=== PATIENT | male | born 2000 | race Caucasian/White ===

== ENCOUNTER 2021-09-25 07:18 | Emergency (ER) | payer OTHER, SELFPAY ==
[2021-09-25 08:09] VITALS: BP 125/75; PULSE 58; RESP 18; TEMP 36.6; O2SAT 98; BMI 22.8
--- NOTE | 2021-09-25 09:59 | ED_ITS ---
HPI - Eye Problem General Chief complaint: Eye Problems Stated complaint: L eye inj Time Seen by Provider: 09/25/21 09:19 Source: patient Mode of arrival: ambulatory History of Present Illness HPI Narrative: 21-year-old male with no significant past medical history presenting to the ED complaining left eye erythema and irritation s/p being hit in the face with dodge ball yesterday. Reports initially after injury had brief loss of vision which came back and is at baseline now. Denies wearing glasses or contacts. Reports mild blurry vision at present/dry eye. Denies drainage from eye, vision loss at present, fever, nausea/vomiting MD chief complaint: eye pain and eye redness Onset (ago): day(s) Onset description: sudden Location: left eye Eye Symptoms: redness, pain and blurry vision Related Data Previous Rx's Medication Instructions Recorded polymyxin B sulfate 10,000 1 drp ophthalmic (eye) Q3H 7 days 09/25/21 unit-trimethoprim 1 mg/mL eye #10 mL drops (Polytrim) Allergies Allergy/AdvReac Type Severity Reaction Status Date / Time No Known Allergies Allergy Verified 09/25/21 08:09 Review of Systems Review of Systems: Constitutional:No Fever, No Chills, No Night Sweats, No Fatigue, No Malaise ENT/Mouth: No Ear Pain, No Nasal Congestion, No Sinus Pain, No Hoarseness, No sore throat, No Rhinorrhea, No Swallowing Difficulty Eyes: + Eye Pain, No Swelling, + Redness, No Foreign Body, No Discharge, + Vision Changes (improved) Cardiovascular: No Chest Pain, No SOB, No Palpitations Respiratory: No Cough, No Sputum, No Dyspnea Gastrointestinal: No Nausea, No Vomiting, No Diarrhea, No Abdominal pain Genitourinary: No Hematuria, No Urinary Incontinence/retention Musculoskeletal: No joint pain, No Myalgias Skin: No Skin Lesions, No rash Neuro: No Weakness, No Numbness, No Paresthesias, No Loss of Consciousness, No Dizziness, No Headache Yes all other systems are reviewed and are negative [facility] Past Medical History Attestation statement: The following information was validated with the patient. Social History Social History Advance Directives: No Advance Directives Information Provided: No Physical Exam Vital Signs: Vital Signs: Last Vital Signs Temp 98 F 09/25/21 08:09 Pulse 58 09/25/21 08:09 Resp 18 09/25/21 08:09 BP 125/75 09/25/21 08:09 Pulse Ox 98 09/25/21 08:09 O2 Del Method 09/25/21 08:09 BMI result Body Mass Index 22.8 Const: General: cooperative, healthy appearing and no acute distress Orientation/consciousness: patient oriented x3 Limitations: no limitations HEENT: Head: Yes normal to inspection and Yes atraumatic Ears: hearing grossly normal bilaterally General nose exam: Normal external nose present Face and sinus: Yes normal facial exam Eyes: Other: No appreciable orbital step-off. EOMs intact without entrapment. General: appearance normal, both eyes and all related structures Eyelids: Yes eyelids normal Conjunctivae: conjunctival abnormal left conjunctival injection diffuse; without discharge Corneas: corneas abnormal on the left fluorescein used and abrasion curved and at the following clock position (5-7) Pupils: Equal, round and reactive pupils present EOM: EOMs intact bilaterally and no movement deficit Direct Ophthalmoscopy: normal light reflex and no photophobia Neck: Neck: Yes normal visual inspection, Yes full ROM, Yes no lymphadenopathy and Yes no meningeal signs Resp: Effort & Inspection: normal respiratory effort and no respiratory distress Cardio: Rate: regular rate Heart sounds: S1 normal heart sound present and S2 normal heart sound present Skin: Rashes: no rashes Wounds: no wounds Neuro: General: patient oriented x3, tone normal and no meningeal signs Cranial nerves: Yes Equal, round and reactive pupils present Gait exam (Neuro): Normal gait present Extrem: General: Yes normal to inspection MDM - Eye Problem MDM Narrative Medical decision making narrative: 21-year-old male with no significant past medical history presenting to the ED complaining left eye erythema and irritation s/p being hit in the face with dodge ball yesterday. On exam vital signs stable, NAD, nontoxic appearing, physical exam as above with conjunctival injection an appreciable curve like corneal abrasion from 5-7 o'clock. No appreciable ulceration. No subconjunctival hemorrhage. No evidence of globe rupture Plan: Fluorescein stain/tetracaine Differential Diagnosis Differential diagnosis: Likely corneal abrasion, conjunctivitis, subconjunctival hemorrhage and ruptured globe Medical Records Attestation: I reviewed the patient's medical records. Lab Data Attestation: I reviewed the patient's lab results. Discharge Plan Discharge Clinical Impression: Corneal abrasion Patient Disposition: Home, Self-Care Instructions: Corneal Abrasion (ED) Additional Instructions: YOU HAVE A SCRATCH IN HER EYE. POLYTRIM ARE ANTIBIOTIC DROPS, USE PRESCRIBED. YOU NEED TO FOLLOW-UP WITH AN RADIOLOGICAL EQUIPMENT SPECIALIST, CALL TO MAKE AN APPOINTMENT. IF SYMPTOMS PERSIST OR WORSEN PLEASE RETURN TO THE EMERGENCY DEPARTMENT. TAKE TYLENOL AND MOTRIN Prescriptions: New polymyxin B sulf-trimethoprim [Polytrim] 10,000 unit- 1 mg/mL drops 1 drp ophthalmic (eye) Q3H 7 Days Qty: 10 0RF Rx Instructions: while awake; do not exceed 6 doses in 24 hours Referrals: Zach Hinojosa [Physician] -
[2021-09-25] MEDS: Tetracaine HCl/PF 0.5% Oph Sol 4 ML DROPS 3 DROP EYE-LEFT (10:12)
[2021-09-25] MEDS: Fluorescein Sodium STRIP 1 STRIP EYE-LEFT (10:12)
== END 2021-09-25 10:39 | disposition home or self-care (01) ==
PROVIDERS: Emergency Provider Emergency Medicine
DX: S05.02XA Injury of conjunctiva and corneal abrasion without foreign body, left eye, initial encounter (principal); H53.8 Other visual disturbances; Y29.XXXA Contact with blunt object, undetermined intent, initial encounter; Y93.9 Activity, unspecified; Y92.9 Unspecified place or not applicable; Y99.9 Unspecified external cause status
CPT/HCPCS: 99283